=== PATIENT | male | born 1935 ===

== ENCOUNTER → 2017-01-25 | Outpatient (CLI) | payer MEDICARE, OTHER ==
[~2017-01-25] VITALS: Ht 177.8 cm; Wt 99.0 kg
[~2017-01-25] MED LIST: ALBUTEROL; BREO ELLIPTA; CARV6 PO; FURO20 PO; INCRUSE; LEVALBUTEROL; LOSARTAN PO; PANT40TA25 PO
[2017-01-25 11:45] VITALS: BP 96/41
== END | disposition home or self-care (01) ==
LOC: SRCNTR 11:17
PROVIDERS: ATTEND Internal Medicine Critical Care Medicine
DX: I48.2 Chronic atrial fibrillation (principal); J44.1 Chronic obstructive pulmonary disease with (acute) exacerbation; J90 Pleural effusion, not elsewhere classified; I25.84 Coronary atherosclerosis due to calcified coronary lesion; I35.0 Nonrheumatic aortic (valve) stenosis; D64.9 Anemia, unspecified; F17.200 Nicotine dependence, unspecified, uncomplicated
CPT/HCPCS: G0463

== ENCOUNTER → 2017-03-29 | Outpatient (CLI) | payer MEDICARE, OTHER ==
[~2017-03-29] VITALS: Ht 177.8 cm; Wt 85.0 kg
[~2017-03-29] MED LIST changes: +POTA99TA25 PO
[2017-03-29 12:42] VITALS: BP 99/58
== END | disposition home or self-care (01) ==
LOC: SRCNTR 12:21
PROVIDERS: ATTEND Internal Medicine Critical Care Medicine
DX: I25.84 Coronary atherosclerosis due to calcified coronary lesion (principal); D64.9 Anemia, unspecified; I48.2 Chronic atrial fibrillation; I50.9 Heart failure, unspecified; J44.1 Chronic obstructive pulmonary disease with (acute) exacerbation; J90 Pleural effusion, not elsewhere classified; J96.11 Chronic respiratory failure with hypoxia; R49.0 Dysphonia; F17.200 Nicotine dependence, unspecified, uncomplicated; R91.8 Other nonspecific abnormal finding of lung field; Z98.890 Other specified postprocedural states; Z88.0 Allergy status to penicillin; Z95.5 Presence of coronary angioplasty implant and graft
CPT/HCPCS: G0463

== ENCOUNTER → 2017-04-12 | Outpatient (CLI) | payer MEDICARE, OTHER ==
[~2017-04-12] VITALS: Ht 177.8 cm; Wt 84.9 kg
[2017-04-12 09:11] VITALS: BP 115/66
== END | disposition home or self-care (01) ==
LOC: SRCNTR 08:52
PROVIDERS: ATTEND Internal Medicine Critical Care Medicine
DX: J44.9 Chronic obstructive pulmonary disease, unspecified (principal)
CPT/HCPCS: G0463

== ENCOUNTER → 2017-05-05 | Outpatient (CLI) | payer MEDICARE, OTHER ==
[~2017-05-05] VITALS: Ht 177.8 cm; Wt 85.0 kg
[2017-05-05 11:29] VITALS: BP 95/48
== END | disposition home or self-care (01) ==
LOC: SRCNTR 11:22
PROVIDERS: ATTEND Internal Medicine Critical Care Medicine
DX: J44.1 Chronic obstructive pulmonary disease with (acute) exacerbation (principal); J96.11 Chronic respiratory failure with hypoxia; J90 Pleural effusion, not elsewhere classified; I48.2 Chronic atrial fibrillation; I25.84 Coronary atherosclerosis due to calcified coronary lesion; D64.9 Anemia, unspecified; I35.8 Other nonrheumatic aortic valve disorders; F17.200 Nicotine dependence, unspecified, uncomplicated; Z95.5 Presence of coronary angioplasty implant and graft; Z95.2 Presence of prosthetic heart valve
CPT/HCPCS: G0463

== ENCOUNTER → 2017-07-22 | Outpatient (CLI) | payer MEDICARE, OTHER ==
[~2017-07-22] VITALS: Ht 177.8 cm; Wt 88.0 kg
[2017-07-22 11:56] VITALS: BP 112/69
== END | disposition home or self-care (01) ==
LOC: SRCNTR 11:47
PROVIDERS: ATTEND Internal Medicine Critical Care Medicine
DX: I48.2 Chronic atrial fibrillation (principal); J44.1 Chronic obstructive pulmonary disease with (acute) exacerbation; J90 Pleural effusion, not elsewhere classified; F17.200 Nicotine dependence, unspecified, uncomplicated; I25.84 Coronary atherosclerosis due to calcified coronary lesion; I35.9 Nonrheumatic aortic valve disorder, unspecified; D64.9 Anemia, unspecified; J96.11 Chronic respiratory failure with hypoxia
CPT/HCPCS: G0463

== ENCOUNTER → 2017-08-26 | Outpatient (CLI) | payer MEDICARE, OTHER ==
[~2017-08-26] VITALS: Ht 177.8 cm; Wt 88.0 kg
[2017-08-26 13:44] VITALS: BP 101/69
== END | disposition home or self-care (01) ==
LOC: SRCNTR 12:42
PROVIDERS: ATTEND Internal Medicine Critical Care Medicine
DX: J96.10 Chronic respiratory failure, unspecified whether with hypoxia or hypercapnia (principal); J44.1 Chronic obstructive pulmonary disease with (acute) exacerbation; J90 Pleural effusion, not elsewhere classified; I48.2 Chronic atrial fibrillation; I25.84 Coronary atherosclerosis due to calcified coronary lesion; I35.8 Other nonrheumatic aortic valve disorders; D64.9 Anemia, unspecified; Z87.891 Personal history of nicotine dependence
CPT/HCPCS: G0463

== ENCOUNTER → 2017-09-30 | Outpatient (CLI) | payer MEDICARE, OTHER ==
[~2017-09-30] VITALS: Ht 177.8 cm; Wt 91.6 kg
[2017-09-30 13:45] VITALS: BP 104/56
== END | disposition home or self-care (01) ==
LOC: SRCNTR 13:42
PROVIDERS: ATTEND Internal Medicine
DX: J44.9 Chronic obstructive pulmonary disease, unspecified (principal); I25.10 Atherosclerotic heart disease of native coronary artery without angina pectoris; Z88.0 Allergy status to penicillin; Z95.2 Presence of prosthetic heart valve; Z95.5 Presence of coronary angioplasty implant and graft
CPT/HCPCS: G0463

== ENCOUNTER → 2017-12-09 | Outpatient (CLI) | payer MEDICARE, OTHER ==
[~2017-12-09] VITALS: Ht 177.8 cm; Wt 91.0 kg
[2017-12-09 13:48] VITALS: BP 110/76
== END | disposition home or self-care (01) ==
LOC: SRCNTR 13:16
PROVIDERS: ATTEND Internal Medicine
DX: J44.0 Chronic obstructive pulmonary disease with (acute) lower respiratory infection (principal); I25.10 Atherosclerotic heart disease of native coronary artery without angina pectoris; J20.9 Acute bronchitis, unspecified; J90 Pleural effusion, not elsewhere classified; Z88.0 Allergy status to penicillin; Z99.81 Dependence on supplemental oxygen
CPT/HCPCS: G0463

== ENCOUNTER → 2018-02-28 | Outpatient (CLI) | payer MEDICARE, OTHER ==
[~2018-02-28] VITALS: Ht 177.8 cm; Wt 93.0 kg
[2018-02-28 11:11] VITALS: BP 111/54
== END | disposition home or self-care (01) ==
LOC: SRCNTR 10:51
PROVIDERS: ATTEND Internal Medicine Critical Care Medicine
DX: J44.1 Chronic obstructive pulmonary disease with (acute) exacerbation (principal); I50.9 Heart failure, unspecified; I48.2 Chronic atrial fibrillation; D64.9 Anemia, unspecified; I25.10 Atherosclerotic heart disease of native coronary artery without angina pectoris; I25.84 Coronary atherosclerosis due to calcified coronary lesion; J96.11 Chronic respiratory failure with hypoxia; J98.4 Other disorders of lung; Z66 Do not resuscitate; Z88.0 Allergy status to penicillin; Z98.890 Other specified postprocedural states
CPT/HCPCS: G0463

== ENCOUNTER → 2018-06-02 | Outpatient (CLI) | payer MEDICARE, OTHER ==
[~2018-06-02] VITALS: Ht 177.8 cm; Wt 88.0 kg
[~2018-06-02] MED LIST changes: -LEVALBUTEROL; -POTA99TA25 PO
[2018-06-02 11:02] VITALS: BP 104/72
== END | disposition home or self-care (01) ==
LOC: SRCNTR 11:01
PROVIDERS: ATTEND Internal Medicine Critical Care Medicine
DX: J44.1 Chronic obstructive pulmonary disease with (acute) exacerbation (principal); J90 Pleural effusion, not elsewhere classified; I48.2 Chronic atrial fibrillation; I25.84 Coronary atherosclerosis due to calcified coronary lesion; I35.8 Other nonrheumatic aortic valve disorders; D64.9 Anemia, unspecified; J96.10 Chronic respiratory failure, unspecified whether with hypoxia or hypercapnia; K86.1 Other chronic pancreatitis; E78.5 Hyperlipidemia, unspecified; E11.9 Type 2 diabetes mellitus without complications; M10.9 Gout, unspecified; E66.9 Obesity, unspecified; F17.200 Nicotine dependence, unspecified, uncomplicated
CPT/HCPCS: G0463

== ENCOUNTER → 2018-08-23 | Outpatient (CLI) | payer MEDICARE, OTHER ==
[~2018-08-23] VITALS: Ht 177.8 cm; Wt 85.5 kg
[~2018-08-23] MED LIST changes: +AMIO200T44 PO; +APIX2.5T PO; +FERR-89 PO; +ISOS30TA6 PO; +LEVAHFA IH; -LOSARTAN PO; +MEXI150 PO; +NITR.4 SL
[2018-08-23 14:42] VITALS: BP 104/71
== END | disposition home or self-care (01) ==
LOC: SRCNTR 14:33
PROVIDERS: ATTEND Internal Medicine Critical Care Medicine
DX: J44.1 Chronic obstructive pulmonary disease with (acute) exacerbation (principal); J90 Pleural effusion, not elsewhere classified; I48.2 Chronic atrial fibrillation; I25.84 Coronary atherosclerosis due to calcified coronary lesion; I35.8 Other nonrheumatic aortic valve disorders; D64.9 Anemia, unspecified; J96.11 Chronic respiratory failure with hypoxia; F17.210 Nicotine dependence, cigarettes, uncomplicated
CPT/HCPCS: G0463